=== PATIENT | female | born 1975 | race African-American/Black ===

== ENCOUNTER 2017-01-21 12:55 | Emergency (ER) | payer OTHER ==
[~2017-01-21] VITALS: Ht 162.6 cm; Wt 52.2 kg
[~2017-01-21 12:55] MED LIST: CLEOCIN HCL150 MG PO; IRON325 PO; NOHOMEMEDICATIONS; NORCO 5-325 TA1 EACH PO; PRILOSEC20 MG PO; TUMS PO
[2017-01-21] MEDS ORDERED: NORCO 5-325 TA1 EACH PO (13:24)
[2017-01-21] MEDS ORDERED: VALIUM5 MG PO (13:24)
[2017-01-21 13:40] LABS: URINE BILIRUBIN NEGATIVE (Negative); URINE BLOOD NEGATIVE (Negative); URINE COLOR YELLOW; URINE GLUCOSE-RANDOM* NEGATIVE (Negative); URINE KETONES TRACE (Negative); URINE NITRITE NEGATIVE (Negative); URINE PROTEIN (DIPSTICK) NEGATIVE (Negative); URINE SPECIFIC GRAVITY 1.025 (1.003-1.035); URINE UROBILINOGEN 0.2 E.U./dl (0.2-1.0)
[2017-01-21 15:17] VITALS: BP 136/90
== END 2017-01-21 15:18 | disposition home or self-care (01) ==
LOC: ER 12:55
PROVIDERS: Emergency Medicine
DX: M54.5 Low back pain (principal); F10.99 Alcohol use, unspecified with unspecified alcohol-induced disorder

== ENCOUNTER 2019-01-06 09:06 | Emergency (ER) | payer OTHER ==
[~2019-01-06] VITALS: Ht 162.6 cm; Wt 57.1 kg
[~2019-01-06 09:06] MED LIST changes: +VALIUM5 MG PO
[2019-01-06 09:16] VITALS: BP 122/56
[2019-01-06] MEDS ORDERED: TESSALON PERLE100 MG PO (11:28)
[2019-01-06] MEDS ORDERED: FLONASE 0.05%50 MCG NASAL (11:28)
== END 2019-01-06 11:55 | disposition home or self-care (01) ==
LOC: ER 09:06
DX: J06.9 Acute upper respiratory infection, unspecified (principal); J02.9 Acute pharyngitis, unspecified; H92.03 Otalgia, bilateral; Z86.2 Personal history of diseases of the blood and blood-forming organs and certain disorders involving the immune mechanism

== ENCOUNTER 2019-06-17 01:13 | Emergency (ER) | payer OTHER ==
[~2019-06-17] VITALS: Ht 170.2 cm; Wt 63.5 kg
[~2019-06-17 01:13] MED LIST changes: +FLONASE 0.05%50 MCG NASAL; +TESSALON PERLE100 MG PO
[2019-06-17] MEDS ORDERED: [UNRECOGNIZED DRUG - REMARK] (01:36)
[2019-06-17 03:45] LABS: ABSOLUTE NEUTROPHILS 2.8 thou/uL (1.4-8.2); BASOPHILS 0.7 % (0.0-2.0); EOSINOPHILS 0.3 % (0.0-3.0); HEMOGLOBIN 12.6 gm/dL (12.0-15.0); LYMPHOCYTES 26.1 % (24.0-44.0); MCH 29.7 pg (26.0-34.0); MCHC 33.2 g/dL (28.0-37.0); MCV 89.5 fL (80.0-100.0); MONOCYTES 11.7 % (1.0-8.0); PLATELET COUNT 223 thou/uL (150-400); POLYS 61.2 % (36.0-66.0); RBC 4.25 mil/uL (4.20-5.00); RDW 14.8 % (10.5-14.5); WBC 4.6 thou/uL (4.0-11.0)
[2019-06-17 03:49] LABS: ANION GAP 11 mmol/L (7-16); BUN 9 mg/dL (7-18); CALCIUM 9.9 mg/dL (8.5-10.1); CHLORIDE 95 mmol/L (98-107); CO2 25 mmol/L (21-32); GLUCOSE 94 mg/dL (74-106); POTASSIUM 3.4 mmol/L (3.5-5.1); SODIUM 131 mmol/L (136-145)
[2019-06-17 03:55] LABS: APTT 31.7 Seconds (24.5-32.8); PROTIME 9.8 Seconds (9.3-11.4)
[2019-06-17 03:57] LABS: TROPONIN-I <0.06 ng/mL (<0.06)
[2019-06-17 04:04] VITALS: BP 147/83
== END 2019-06-17 04:04 | disposition short-term general hospital (02) ==
LOC: ER 01:13
PROVIDERS: Emergency Medicine
DX: I60.8 Other nontraumatic subarachnoid hemorrhage (principal); G43.909 Migraine, unspecified, not intractable, without status migrainosus; Z86.2 Personal history of diseases of the blood and blood-forming organs and certain disorders involving the immune mechanism